=== PATIENT | female | born 1930 | race Caucasian/White ===

== ENCOUNTER 2017-10-21 11:59 | Inpatient (IN) | payer MEDICARE, OTHER ==
[~2017-10-21] VITALS: Ht 162.6 cm; Wt 68.9 kg
[~2017-10-21 11:59] MED LIST: CARDIZEM CD240 MG PO; DETROL LA4 MG PO; KEFLEX500 MG PO; MEDROL DOSE PACK4 MG PO; VIBRAMYCIN 100100 MG PO; VOLTAREN75 MG PO
[2017-10-21] MEDS ORDERED: CARDIZEM120 MG PO (12:14)
[2017-10-21] MEDS ORDERED: COLACE100 MG PO (12:14)
[2017-10-21] MEDS ORDERED: MEGACE40 MG PO (12:17)
[2017-10-21] MEDS ORDERED: FERROUS SULFAT325 MG PO (12:17)
[2017-10-21] MEDS ORDERED: MOBIC7.5 MG PO (12:18)
[2017-10-21] MEDS ORDERED: MIRALAX527 GM PO (12:18)
[2017-10-21 12:48] VITALS: BP 112/48
[2017-10-21 13:12] LABS: APPEARANCE CLEAR (CLEAR); COLOR YELLOW (YELLOW)
[2017-10-21 13:13] LABS: BILIRUBIN NEGATIVE (NEGATIVE); GLUCOSE NEGATIVE (NEGATIVE); KETONE SMALL mg/dL (NEGATIVE); NITRITE NEGATIVE (NEGATIVE); PROTEIN NEGATIVE (NEGATIVE); SPECIFIC GRAVITY 1.015 (1.005-1.020); UROBILINOGEN NORMAL (NORMAL)
[2017-10-21 13:17] LABS: BASOPHILS 0.2 % (0-2); IMMATURE GRANULOCYTES 0.5 % (0-5); LYMPHOCYTES 11.2 % (15-50); MCH 31.7 pg (26.0-34.0); MCHC 34.5 g/dL (31.0-37.0); MCV 91.7 fL (80.0-100.0); MEAN PLATELET VOLUME 9.5 fL (7.4-10.4); MONOCYTES 8.5 % (2-11); NEUTROPHILS 78.6 % (40-80); PLATELET COUNT 209 10x3/uL (130-400); RBC 2.18 10x6/uL (4.00-5.40); RDW 13.6 % (11.5-14.5); WBC 4.1 10x3/uL (4.8-10.8)
[2017-10-21 13:38] LABS: ALBUMIN 2.5 g/dL (3.4-5.0); ALKALINE PHOSPHATASE 86 U/L (46-116); ALT (SGPT) 28 U/L (10-68); BILIRUBIN - TOTAL 0.33 mg/dL (0.2-1.3); CALC OSMOLALITY 268 mosm/kg (275-300); CALCIUM 8.3 mg/dL (8.5-10.1); CARBON DIOXIDE 26.2 mmol/L (21.0-32.0); CHLORIDE - SERUM 98 mmol/L (98-107); CREATININE - SERUM 0.7 mg/dL (0.6-1.3); GLUCOSE 99 mg/dL (74-106); POTASSIUM - SERUM 4.6 mmol/L (3.5-5.1); PROTEIN - SERUM 5.2 g/dL (6.4-8.2); SODIUM 131 mmol/L (136-145); UREA NITROGEN 30 mg/dL (7-18); eGFR NON AFRICAN AMERICAN 83 mL/min (90-120)
[2017-10-21 13:44] LABS: HEMOGLOBIN 6.9 g/dL (12-16)
[2017-10-21 13:51] LABS: CKMB 0.3 U/L (0.0-3.6); CREATINE KINASE 62 UL (21-215)
[2017-10-21 14:01] LABS: TROPONIN-I < 0.017 ng/mL (0.000-0.060)
[2017-10-21 15:21] VITALS: BP 112/53
[2017-10-21 17:14] VITALS: BP 116/59
[2017-10-21 19:28] LABS: HEMATOCRIT 18.4 % (36.0-48.0); HEMOGLOBIN 6.1 g/dL (12-16)
[2017-10-21 20:10] VITALS: BP 129/62
[2017-10-22] VITALS (7 sets, daily range): BP systolic 109–152; BP diastolic 44–71; Ht 162.6 cm; Wt 68.9 kg
[2017-10-22 06:36] LABS: BASOPHILS 0.4 % (0-2); EOSINOPHILS 2.9 % (0-7); IMMATURE GRANULOCYTES 0.2 % (0-5); LYMPHOCYTES 14.4 % (15-50); MCH 31.4 pg (26.0-34.0); MCHC 34.2 g/dL (31.0-37.0); MCV 91.8 fL (80.0-100.0); MEAN PLATELET VOLUME 9.6 fL (7.4-10.4); NEUTROPHILS 72.1 % (40-80); PLATELET COUNT 173 10x3/uL (130-400); RDW 13.5 % (11.5-14.5); WBC 4.5 10x3/uL (4.8-10.8)
[2017-10-22 06:56] LABS: HEMATOCRIT 25.7 % (36.0-48.0); HEMOGLOBIN 8.8 g/dL (12-16)
[2017-10-22 07:16] LABS: INR 1.21 (0.85-1.17); PROTIME 14.9 SECONDS (11.6-15.0)
[2017-10-22 07:28] LABS: ALBUMIN 2.3 g/dL (3.4-5.0); ALKALINE PHOSPHATASE 69 U/L (46-116); ALT (SGPT) 23 U/L (10-68); BILIRUBIN - TOTAL 0.64 mg/dL (0.2-1.3); CALC OSMOLALITY 267 mosm/kg (275-300); CARBON DIOXIDE 25.4 mmol/L (21.0-32.0); CHLORIDE - SERUM 102 mmol/L (98-107); CREATININE - SERUM 0.6 mg/dL (0.6-1.3); GLUCOSE 83 mg/dL (74-106); POTASSIUM - SERUM 4.2 mmol/L (3.5-5.1); PRE-ALBUMIN 12.1 mg/dL (18.0-35.7); PROTEIN - SERUM 4.7 g/dL (6.4-8.2); SODIUM 132 mmol/L (136-145); UREA NITROGEN 25 mg/dL (7-18); eGFR NON AFRICAN AMERICAN > 90 mL/min (90-120)
[2017-10-22] MEDS ORDERED: DETROL LA4 MG PO (12:36)
[2017-10-22] MEDS ORDERED: VIBRAMYCIN 100100 MG PO (12:37)
[2017-10-22] MEDS ORDERED: NYSTATIN1 PWD TOPICAL (12:39)
[2017-10-22 18:36] LABS: HEMOGLOBIN 10.5 g/dL (12-16)
[2017-10-23 01:17] VITALS: BP 130/69
[2017-10-23 04:00] VITALS: BP 118/62
[2017-10-23 04:51] LABS: BASOPHILS 0.4 % (0-2); EOSINOPHILS 4.1 % (0-7); HEMATOCRIT 29.8 % (36.0-48.0); HEMOGLOBIN 10.1 g/dL (12-16); IMMATURE GRANULOCYTES 0.2 % (0-5); LYMPHOCYTES 14.9 % (15-50); MCH 30.6 pg (26.0-34.0); MCHC 33.9 g/dL (31.0-37.0); MCV 90.3 fL (80.0-100.0); MEAN PLATELET VOLUME 9.8 fL (7.4-10.4); MONOCYTES 8.8 % (2-11); NEUTROPHILS 71.6 % (40-80); PLATELET COUNT 153 10x3/uL (130-400); RDW 14.7 % (11.5-14.5); WBC 4.9 10x3/uL (4.8-10.8)
[2017-10-23 05:12] LABS: ALBUMIN 2.4 g/dL (3.4-5.0); ALKALINE PHOSPHATASE 66 U/L (46-116); ALT (SGPT) 20 U/L (10-68); BILIRUBIN - TOTAL 0.75 mg/dL (0.2-1.3); CALC OSMOLALITY 264 mosm/kg (275-300); CARBON DIOXIDE 24.5 mmol/L (21.0-32.0); CHLORIDE - SERUM 100 mmol/L (98-107); GLUCOSE 77 mg/dL (74-106); POTASSIUM - SERUM 3.9 mmol/L (3.5-5.1); PROTEIN - SERUM 4.7 g/dL (6.4-8.2); SODIUM 131 mmol/L (136-145); UREA NITROGEN 22 mg/dL (7-18)
[2017-10-23 05:13] LABS: CREATININE - SERUM 0.4 mg/dL (0.6-1.3); eGFR NON AFRICAN AMERICAN > 90 mL/min (90-120)
[2017-10-23 08:22] VITALS: BP 118/59
[2017-10-23 11:34] VITALS: BP 90/42
[2017-10-23 15:57] VITALS: BP 108/60
[2017-10-23 21:32] VITALS: BP 103/61
[2017-10-24] VITALS (10 sets, daily range): BP systolic 89–101; BP diastolic 41–53
[2017-10-24 06:20] LABS: BASOPHILS 0.6 % (0-2); EOSINOPHILS 4.6 % (0-7); HEMOGLOBIN 8.2 g/dL (12-16); IMMATURE GRANULOCYTES 0.4 % (0-5); LYMPHOCYTES 14.8 % (15-50); MCH 31.7 pg (26.0-34.0); MCHC 34.7 g/dL (31.0-37.0); MCV 91.1 fL (80.0-100.0); MONOCYTES 9.8 % (2-11); NEUTROPHILS 69.8 % (40-80); PLATELET COUNT 166 10x3/uL (130-400); RDW 14.8 % (11.5-14.5); WBC 5.2 10x3/uL (4.8-10.8)
[2017-10-24 06:22] LABS: HEMATOCRIT 23.6 % (36.0-48.0); RBC 2.59 10x6/uL (4.00-5.40)
[2017-10-24 06:40] LABS: ALBUMIN 2.4 g/dL (3.4-5.0); ALKALINE PHOSPHATASE 53 U/L (46-116); ALT (SGPT) 18 U/L (10-68); BILIRUBIN - TOTAL 0.46 mg/dL (0.2-1.3); CALC OSMOLALITY 265 mosm/kg (275-300); CARBON DIOXIDE 25.5 mmol/L (21.0-32.0); CHLORIDE - SERUM 100 mmol/L (98-107); GLUCOSE 79 mg/dL (74-106); PROTEIN - SERUM 4.5 g/dL (6.4-8.2); SODIUM 131 mmol/L (136-145); UREA NITROGEN 24 mg/dL (7-18)
[2017-10-24 06:44] LABS: CREATININE - SERUM 0.6 mg/dL (0.6-1.3); eGFR NON AFRICAN AMERICAN > 90 mL/min (90-120)
[2017-10-25 01:26] VITALS: BP 89/39
[2017-10-25 05:39] VITALS: BP 88/39
[2017-10-25 05:46] LABS: BASOPHILS 0.6 % (0-2); EOSINOPHILS 5.8 % (0-7); HEMATOCRIT 26.3 % (36.0-48.0); HEMOGLOBIN 8.9 g/dL (12-16); IMMATURE GRANULOCYTES 0.2 % (0-5); LYMPHOCYTES 16.3 % (15-50); MCH 30.3 pg (26.0-34.0); MCHC 33.8 g/dL (31.0-37.0); MCV 89.5 fL (80.0-100.0); MEAN PLATELET VOLUME 9.8 fL (7.4-10.4); MONOCYTES 6.9 % (2-11); NEUTROPHILS 70.2 % (40-80); PLATELET COUNT 167 10x3/uL (130-400); RBC 2.94 10x6/uL (4.00-5.40); WBC 5.3 10x3/uL (4.8-10.8)
[2017-10-25 06:15] LABS: ALBUMIN 2.3 g/dL (3.4-5.0); ALKALINE PHOSPHATASE 61 U/L (46-116); ALT (SGPT) 16 U/L (10-68); BILIRUBIN - TOTAL 0.45 mg/dL (0.2-1.3); CALC OSMOLALITY 259 mosm/kg (275-300); CALCIUM 7.8 mg/dL (8.5-10.1); CARBON DIOXIDE 24.4 mmol/L (21.0-32.0); CHLORIDE - SERUM 99 mmol/L (98-107); CREATININE - SERUM 0.6 mg/dL (0.6-1.3); GLUCOSE 79 mg/dL (74-106); POTASSIUM - SERUM 4.3 mmol/L (3.5-5.1); PROTEIN - SERUM 4.5 g/dL (6.4-8.2); SODIUM 128 mmol/L (136-145); UREA NITROGEN 25 mg/dL (7-18); eGFR NON AFRICAN AMERICAN > 90 mL/min (90-120)
[2017-10-25 08:57] VITALS: BP 128/64
[2017-10-25 11:51] VITALS: BP 132/66
[2017-10-25 15:51] VITALS: BP 120/69
[2017-10-26 04:00] VITALS: BP 104/52
[2017-10-26 04:58] LABS: BASOPHILS 0.6 % (0-2); EOSINOPHILS 4.9 % (0-7); HEMOGLOBIN 8.1 g/dL (12-16); IMMATURE GRANULOCYTES 0.4 % (0-5); LYMPHOCYTES 14.2 % (15-50); MCH 30.6 pg (26.0-34.0); MCHC 33.8 g/dL (31.0-37.0); MCV 90.6 fL (80.0-100.0); MEAN PLATELET VOLUME 10.1 fL (7.4-10.4); MONOCYTES 7.5 % (2-11); NEUTROPHILS 72.4 % (40-80); PLATELET COUNT 170 10x3/uL (130-400); RBC 2.65 10x6/uL (4.00-5.40); RDW 15.5 % (11.5-14.5); WBC 5.1 10x3/uL (4.8-10.8)
[2017-10-26 05:13] LABS: ALBUMIN 2.3 g/dL (3.4-5.0); ALKALINE PHOSPHATASE 60 U/L (46-116); ALT (SGPT) 15 U/L (10-68); BILIRUBIN - TOTAL 0.57 mg/dL (0.2-1.3); CALC OSMOLALITY 256 mosm/kg (275-300); CALCIUM 7.7 mg/dL (8.5-10.1); CARBON DIOXIDE 27.4 mmol/L (21.0-32.0); CHLORIDE - SERUM 97 mmol/L (98-107); CREATININE - SERUM 0.6 mg/dL (0.6-1.3); GLUCOSE 80 mg/dL (74-106); PROTEIN - SERUM 4.5 g/dL (6.4-8.2); SODIUM 128 mmol/L (136-145); eGFR NON AFRICAN AMERICAN > 90 mL/min (90-120)
[2017-10-26 05:14] LABS: UREA NITROGEN 15 mg/dL (7-18)
[2017-10-26 08:05] VITALS: BP 136/72
[2017-10-26 11:18] VITALS: BP 132/78
[2017-10-26 15:14] VITALS: BP 130/64
[2017-10-26 20:30] VITALS: BP 100/62
[2017-10-27 00:30] VITALS: BP 115/77
[2017-10-27 04:30] VITALS: BP 110/59
[2017-10-27 08:46] VITALS: BP 113/49
[2017-10-27 11:45] VITALS: BP 118/64
[2017-10-27 12:33] LABS: BASOPHILS 0.3 % (0-2); EOSINOPHILS 2.9 % (0-7); IMMATURE GRANULOCYTES 0.3 % (0-5); LYMPHOCYTES 8.5 % (15-50); MCH 30.4 pg (26.0-34.0); MCHC 34.6 g/dL (31.0-37.0); MEAN PLATELET VOLUME 9.8 fL (7.4-10.4); MONOCYTES 7.8 % (2-11); NEUTROPHILS 80.2 % (40-80); PLATELET COUNT 180 10x3/uL (130-400); RDW 15.7 % (11.5-14.5); WBC 5.9 10x3/uL (4.8-10.8)
[2017-10-27 12:36] LABS: HEMATOCRIT 31.2 % (36.0-48.0); HEMOGLOBIN 10.8 g/dL (12-16); MCV 87.9 fL (80.0-100.0); RBC 3.55 10x6/uL (4.00-5.40)
[2017-10-27 13:02] LABS: CALC OSMOLALITY 251 mosm/kg (275-300); CARBON DIOXIDE 28.2 mmol/L (21.0-32.0); CHLORIDE - SERUM 97 mmol/L (98-107); CREATININE - SERUM 0.6 mg/dL (0.6-1.3); GLUCOSE 85 mg/dL (74-106); POTASSIUM - SERUM 3.8 mmol/L (3.5-5.1); SODIUM 127 mmol/L (136-145); eGFR NON AFRICAN AMERICAN > 90 mL/min (90-120)
[2017-10-27 13:04] LABS: UREA NITROGEN 8 mg/dL (7-18)
[2017-10-27 15:59] VITALS: BP 116/50
[2017-10-27 20:00] VITALS: BP 99/52
[2017-10-28] VITALS: BP 111/63
[2017-10-28 05:54] LABS: BASOPHILS 0.4 % (0-2); EOSINOPHILS 4.3 % (0-7); HEMATOCRIT 30.9 % (36.0-48.0); HEMOGLOBIN 10.5 g/dL (12-16); IMMATURE GRANULOCYTES 0.2 % (0-5); LYMPHOCYTES 11.2 % (15-50); MCH 30.1 pg (26.0-34.0); MCV 88.5 fL (80.0-100.0); MEAN PLATELET VOLUME 10.3 fL (7.4-10.4); MONOCYTES 9.9 % (2-11); PLATELET COUNT 182 10x3/uL (130-400); RBC 3.49 10x6/uL (4.00-5.40); RDW 16.4 % (11.5-14.5); WBC 4.5 10x3/uL (4.8-10.8)
[2017-10-28 06:19] LABS: CALC OSMOLALITY 256 mosm/kg (275-300); CARBON DIOXIDE 27.6 mmol/L (21.0-32.0); CHLORIDE - SERUM 99 mmol/L (98-107); CREATININE - SERUM 0.5 mg/dL (0.6-1.3); GLUCOSE 84 mg/dL (74-106); POTASSIUM - SERUM 3.3 mmol/L (3.5-5.1); SODIUM 129 mmol/L (136-145); UREA NITROGEN 10 mg/dL (7-18); eGFR NON AFRICAN AMERICAN > 90 mL/min (90-120)
[2017-10-28 06:37] VITALS: BP 100/47
== END 2017-10-28 13:34 | DRG 378 ==
LOC: D.ER 11:59 → D.M2 16:55 → D.SDCHOLD 10-28 11:27 → D.M2 10-28 13:34
PROVIDERS: Family Medicine; Internal Medicine Nephrology
DX: K92.2 Gastrointestinal hemorrhage, unspecified (principal); D62 Acute posthemorrhagic anemia; E87.1 Hypo-osmolality and hyponatremia; T39.395A Adverse effect of other nonsteroidal anti-inflammatory drugs [NSAID], initial encounter; I35.0 Nonrheumatic aortic (valve) stenosis; M19.90 Unspecified osteoarthritis, unspecified site; I10 Essential (primary) hypertension; K59.00 Constipation, unspecified

== ENCOUNTER 2017-11-11 07:00 | Inpatient (IN) | payer MEDICARE, OTHER ==
[~2017-11-11] VITALS: Ht 162.6 cm; Wt 79.4 kg
--- NOTE | ~2017-11-11 | PN ---
PATIENT:NICOLE CORONA MEDICAL RECORD: [id number] LOCATION:D. D.213 ADMISSION DATE: 11/11/17 PROGRESS NOTE DATE OF SERVICE: 11/17/2017 SUBJECTIVE: This is an 87-year-old old female who was admitted for multifocal pneumonia with hypoxemia. The patient has been on antibiotics. She has nonproductive cough. She has a small right and left pleural effusion. She has had a history of hypertension, osteoarthritis, gastroesophageal reflux disease. Denies any fever or chills. PHYSICAL EXAMINATION: GENERAL: Reveals a female who is in no acute distress. VITAL SIGNS: Temperature 98.2, heart rate of 83, respiratory rate of 18, blood pressure 138/88, saturations 100. SHEENT: Unremarkable. NECK: Supple. There is no adenopathy. Trachea is midline. CHEST: Showed mild crackles on coughing. There is no accessory muscle use. HEART: Shows no jugular venous distention. No murmur or gallops. ABDOMEN: Benign, without any tenderness. EXTREMITIES: No clubbing, cyanosis or edema. LABORATORY DATA: Showed white count is 4.5, hemoglobin 9.8 and platelet count 219. Chemistry is remarkable for potassium 4.5, sodium 132, creatinine is 0.6. INR is 1.07. Chest x-ray from yesterday showed multifocal alveolar and interstitial densities bilaterally with small effusions. ASSESSMENT: Pneumonia, multifocal, this is healthcare-associated pneumonia, but could be treated as community-acquired pneumonia. She is on appropriate antibiotics. There is further suggestion of chronic obstructive pulmonary disease and is on bronchodilators. PLAN: 1. Continue antibiotics. 2. Bronchodilators. 3. Mucolytics. 4. Saline nasal spray. 5. DVT prophylaxis. TRANSINT:[id number] Voice Confirmation ID: [id number] DOCUMENT ID: [id number] HAYDE LINDA at 1248 CC: [id number] DICTATION DATE: 11/17/171903 ROTOR CASTING MACHINE OPERATOR: 11/18/17 0031 DIS IN 11/18/17 [facility] [address] [place] [address]
--- NOTE | ~2017-11-11 | EC ---
PATIENT:NICOLE CORONA DATE OF SERVICE: 11/11/17 SEX: F MEDICAL RECORD: [id number] DATE OF : [birth year] LOCATION:D.M2 D.213 AGE OF PATIENT: 87 ADMISSION DATE: 11/11/17 REFERRING PHYSICIAN: INTERPRETING PHYSICIAN: MAURI HERNANDEZ MD ECHOCARDIOGRAM REPORT ECHO CHARGES 4 ECHO COMPLETE Date: 11/12 CLINICAL DIAGNOSIS: CHF ECHOCARDIOGRAPHIC MEASUREMENTS (adult normal given) AC root (d.<3.7cm) 3.1 cm LV Septum d (<1.2 cm> 1.1 cm Valve Excursion 0.6 cm LV Septum (systole) 1.8 cm Left Atria (s.<4.0cm> 5.6 cm LVPW d(<1.2cm) 1.3 cm RV (d.<2.3cm) 2.5 cm LVPW (sytole) 2.1 cm LV diastole(<5.6CM) 5.3 cm MV E-F(>70mm/sec) cm LV systole 3.1 cm LVOT Diameter 1.7 cm MV exc.(>10mm) cm Est.ejection fraction (50-75%) % DOPPLER: LVIT cm/sec A 173 cm/sec E 118 cm/sec LA cm/sec RVSP 54.0 mmHg LVOT 129 cm/sec AOP1/2T m/s Asc. Ao 484 cm/sec RVOT 95.0 cm/sec RA cm/sec PA 296 cm/sec AV Gradient Peak 94.0 mmHg AV Mean 55.0 mmHg AV Area 0.7 cm MV Gradient Peak 8.6 mmHg MV Mean 2.6 mmHg MV Area cm COMMENTS: Coding Advisor: 1 PEDRO LONEPINE Electrical Lineworker: 1 Dr. Hernandez TAPE# PACS Pericardial Effusion N DATE OF SERVICE: FINDINGS: 1. Left ventricular chamber size is within normal limits. Left ventricular systolic function is normal. Overall ejection fraction estimated at 60%. 2. Left atrium is enlarged at 5.6 cm. Right atrium and right ventricle chamber sizes are within normal limits. 3. Valvular structures: Aortic valve demonstrates severe calcific aortic stenosis, valve area calculates to 0.7 cm-squared and has a gradient of 94 mm across the valve. The remaining valvular structures have normal structure and ECHOCARDIOGRAM REPORT [id number] NICOLE CORONA motion. 4. Doppler interrogation elsewise reveals mild mitral regurgitation, moderate tricuspid regurgitation, no other valvular insufficiency or stenosis. Pulmonary systolic pressure is elevated estimated 54 mmHg. 5. No evidence of pericardial effusion or left ventricular thrombus. TRANSINT:[id number] Voice Confirmation ID: [id number] DOCUMENT ID: [id number] MAURI HERNANDEZ MD at 1752 CC: [id number] DICTATION DATE: 11/12/17 162 MANAGER HEAVY EQUIPMENT: 11/12/17 1637 ADM IN [place] [id number] [place] [address]
[~2017-11-11 07:00] MED LIST changes: +CARDIZEM120 MG PO; +COLACE100 MG PO; +FERROUS SULFAT325 MG PO; +MEGACE40 MG PO; +MIRALAX527 GM PO; +MOBIC7.5 MG PO; +NYSTATIN1 PWD TOPICAL
[2017-11-11] MEDS ORDERED: LEXAPRO5 MG PO (07:09)
[2017-11-11] MEDS ORDERED: MELATONIN 3 MG1 TAB PO (07:10)
[2017-11-11] MEDS ORDERED: FEXOFENADINE H180 MG PO (07:11)
[2017-11-11] MEDS ORDERED: PROVENTIL/2.5 MG/3 M INH (07:12)
[2017-11-11] MEDS ORDERED: SCOT-TUSSI10 MG/5 ML PO (07:12)
[2017-11-11] MEDS ORDERED: LEVAQUIN500 MG PO (07:13)
[2017-11-11 07:38] LABS: BASOPHILS 0.2 % (0-2); EOSINOPHILS 1.4 % (0-7); HEMATOCRIT 28.6 % (36.0-48.0); HEMOGLOBIN 9.7 g/dL (12-16); IMMATURE GRANULOCYTES 0.2 % (0-5); LYMPHOCYTES 3.4 % (15-50); MCH 30.2 pg (26.0-34.0); MCHC 33.9 g/dL (31.0-37.0); MCV 89.1 fL (80.0-100.0); MEAN PLATELET VOLUME 8.8 fL (7.4-10.4); MONOCYTES 9.5 % (2-11); NEUTROPHILS 85.3 % (40-80); PLATELET COUNT 208 10x3/uL (130-400); RBC 3.21 10x6/uL (4.00-5.40); RDW 14.9 % (11.5-14.5); WBC 5.9 10x3/uL (4.8-10.8)
[2017-11-11 07:45] LABS: INR 1.07 (0.85-1.17); PROTIME 13.5 SECONDS (11.6-15.0)
[2017-11-11 07:46] LABS: D-DIMER-QUANTITATIVE 2.16 ug/mLFEU (0.20-0.54)
[2017-11-11 07:48] LABS: ALBUMIN 2.4 g/dL (3.4-5.0); ALKALINE PHOSPHATASE 82 U/L (46-116); ALT (SGPT) 16 U/L (10-68); BILIRUBIN - TOTAL 0.45 mg/dL (0.2-1.3); CALC OSMOLALITY 251 mosm/kg (275-300); CALCIUM 8.3 mg/dL (8.5-10.1); CARBON DIOXIDE 27.9 mmol/L (21.0-32.0); CHLORIDE - SERUM 91 mmol/L (98-107); CREATININE - SERUM 0.7 mg/dL (0.6-1.3); GLUCOSE 95 mg/dL (74-106); PROTEIN - SERUM 5.6 g/dL (6.4-8.2); SODIUM 125 mmol/L (136-145); UREA NITROGEN 13 mg/dL (7-18); eGFR NON AFRICAN AMERICAN 83 mL/min (90-120)
[2017-11-11 08:00] LABS: CREATINE KINASE 22 UL (21-215); PRO BNP 2036 pg/mL (0-450); TROPONIN-I 0.045 ng/mL (0.000-0.060)
[2017-11-11 08:10] VITALS: BP 110/60
[2017-11-11 09:10] VITALS: BP 116/61
[2017-11-11 11:41] VITALS: BP 113/65
[2017-11-11 13:24] VITALS: BP 121/72; BMI 30.1
[2017-11-11 15:40] VITALS: BP 134/59
[2017-11-11 17:33] LABS: % SATURATION 14 % (15-55); IRON 21 ug/dl (35-150); TOTAL IRON BIND CAPACITY 150 ug/dl (260-445); UNSAT IRON BIND CAPACITY 129 ug/dl (150-375)
[2017-11-11 22:16] VITALS: BP 124/70
[2017-11-12 03:59] LABS: APPEARANCE CLEAR (CLEAR); BILIRUBIN NEGATIVE (NEGATIVE); COLOR YELLOW (YELLOW); GLUCOSE NEGATIVE (NEGATIVE); KETONE SMALL mg/dL (NEGATIVE); NITRITE NEGATIVE (NEGATIVE); PROTEIN NEGATIVE (NEGATIVE); UROBILINOGEN NORMAL (NORMAL)
[2017-11-12 04:01] LABS: BACTERIA FEW /hpf (NONE SEEN); EPITHELIAL CELLS 0-5 /hpf (0-5); RED CELLS - URINE 0-5 /hpf (0-5); WHITE CELLS - URINE 0-5 /hpf (0-5)
[2017-11-12 05:19] LABS: BASOPHILS 0.6 % (0-2); EOSINOPHILS 1.9 % (0-7); HEMATOCRIT 26.6 % (36.0-48.0); HEMOGLOBIN 8.8 g/dL (12-16); IMMATURE GRANULOCYTES 0.2 % (0-5); LYMPHOCYTES 8.6 % (15-50); MCH 29.8 pg (26.0-34.0); MCHC 33.1 g/dL (31.0-37.0); MCV 90.2 fL (80.0-100.0); MEAN PLATELET VOLUME 9.1 fL (7.4-10.4); NEUTROPHILS 80.7 % (40-80); PLATELET COUNT 218 10x3/uL (130-400); RBC 2.95 10x6/uL (4.00-5.40); WBC 5.4 10x3/uL (4.8-10.8)
[2017-11-12 05:43] LABS: ALBUMIN 2.1 g/dL (3.4-5.0); ALKALINE PHOSPHATASE 67 U/L (46-116); ALT (SGPT) 18 U/L (10-68); BILIRUBIN - TOTAL 0.43 mg/dL (0.2-1.3); CALCIUM 7.9 mg/dL (8.5-10.1); CARBON DIOXIDE 25.2 mmol/L (21.0-32.0); CHLORIDE - SERUM 96 mmol/L (98-107); CREATININE - SERUM 0.7 mg/dL (0.6-1.3); PHOSPHOROUS 3.3 mg/dL (2.5-4.9); POTASSIUM - SERUM 3.7 mmol/L (3.5-5.1); PROTEIN - SERUM 5.1 g/dL (6.4-8.2); SODIUM 129 mmol/L (136-145); eGFR NON AFRICAN AMERICAN 83 mL/min (90-120)
[2017-11-12 05:45] LABS: CALC OSMOLALITY 254 mosm/kg (275-300); GLUCOSE 65 mg/dL (74-106); UREA NITROGEN 7 mg/dL (7-18)
[2017-11-12 06:50] VITALS: BP 117/65
[2017-11-12 09:22] LABS: FOLATE (FOLIC ACID) - SERUM 10.4 ng/mL (>3.0)
[2017-11-12 13:57] VITALS: BP 108/61
[2017-11-12 20:51] VITALS: BP 123/63
[2017-11-13 01:24] VITALS: BP 132/60
[2017-11-13 05:17] LABS: BASOPHILS 0.5 % (0-2); EOSINOPHILS 4.6 % (0-7); HEMATOCRIT 29.8 % (36.0-48.0); HEMOGLOBIN 9.8 g/dL (12-16); IMMATURE GRANULOCYTES 0.5 % (0-5); LYMPHOCYTES 5.8 % (15-50); MCH 29.8 pg (26.0-34.0); MCHC 32.9 g/dL (31.0-37.0); MCV 90.6 fL (80.0-100.0); MEAN PLATELET VOLUME 8.9 fL (7.4-10.4); MONOCYTES 9.8 % (2-11); NEUTROPHILS 78.8 % (40-80); PLATELET COUNT 207 10x3/uL (130-400); RBC 3.29 10x6/uL (4.00-5.40); RDW 15.1 % (11.5-14.5); WBC 5.8 10x3/uL (4.8-10.8)
[2017-11-13 05:33] LABS: CALC OSMOLALITY 255 mosm/kg (275-300); CALCIUM 7.6 mg/dL (8.5-10.1); CARBON DIOXIDE 31.4 mmol/L (21.0-32.0); CHLORIDE - SERUM 95 mmol/L (98-107); CREATININE - SERUM 0.7 mg/dL (0.6-1.3); GLUCOSE 78 mg/dL (74-106); POTASSIUM - SERUM 3.8 mmol/L (3.5-5.1); SODIUM 129 mmol/L (136-145); UREA NITROGEN 7 mg/dL (7-18); eGFR NON AFRICAN AMERICAN 83 mL/min (90-120)
[2017-11-13 05:55] VITALS: BP 146/74
[2017-11-13 12:33] VITALS: BP 125/72
[2017-11-13 16:52] VITALS: Ht 162.6 cm; Wt 79.4 kg
[2017-11-13 17:21] VITALS: BP 151/81
[2017-11-13 20:35] VITALS: BP 124/67
[2017-11-14 05:34] VITALS: BP 118/61
[2017-11-14 06:09] LABS: BASOPHILS 0.4 % (0-2); EOSINOPHILS 6.2 % (0-7); HEMATOCRIT 30.4 % (36.0-48.0); HEMOGLOBIN 9.7 g/dL (12-16); IMMATURE GRANULOCYTES 0.2 % (0-5); LYMPHOCYTES 10.1 % (15-50); MCH 29.3 pg (26.0-34.0); MCHC 31.9 g/dL (31.0-37.0); MCV 91.8 fL (80.0-100.0); MEAN PLATELET VOLUME 9.1 fL (7.4-10.4); MONOCYTES 10.3 % (2-11); NEUTROPHILS 72.8 % (40-80); PLATELET COUNT 216 10x3/uL (130-400); RBC 3.31 10x6/uL (4.00-5.40); WBC 4.9 10x3/uL (4.8-10.8)
[2017-11-14 06:37] LABS: CALC OSMOLALITY 256 mosm/kg (275-300); CALCIUM 8.1 mg/dL (8.5-10.1); CARBON DIOXIDE 31.2 mmol/L (21.0-32.0); CHLORIDE - SERUM 96 mmol/L (98-107); CREATININE - SERUM 0.6 mg/dL (0.6-1.3); GLUCOSE 72 mg/dL (74-106); PHOSPHOROUS 2.1 mg/dL (2.5-4.9); POTASSIUM - SERUM 4.1 mmol/L (3.5-5.1); SODIUM 130 mmol/L (136-145); eGFR NON AFRICAN AMERICAN > 90 mL/min (90-120)
[2017-11-14 06:39] LABS: UREA NITROGEN 5 mg/dL (7-18)
[2017-11-14 08:26] VITALS: BP 124/71
[2017-11-14 11:35] VITALS: BP 97/55
[2017-11-14 16:00] VITALS: BP 95/53
[2017-11-14 20:00] VITALS: BP 126/68
[2017-11-15] VITALS: BP 135/76
[2017-11-15 04:00] VITALS: BP 138/74
[2017-11-15 06:22] LABS: BASOPHILS 0.4 % (0-2); EOSINOPHILS 6.3 % (0-7); HEMATOCRIT 30.1 % (36.0-48.0); HEMOGLOBIN 9.7 g/dL (12-16); IMMATURE GRANULOCYTES 0.2 % (0-5); LYMPHOCYTES 9.3 % (15-50); MCH 29.8 pg (26.0-34.0); MCHC 32.2 g/dL (31.0-37.0); MCV 92.3 fL (80.0-100.0); MEAN PLATELET VOLUME 8.9 fL (7.4-10.4); MONOCYTES 7.3 % (2-11); NEUTROPHILS 76.5 % (40-80); PLATELET COUNT 214 10x3/uL (130-400); RBC 3.26 10x6/uL (4.00-5.40)
[2017-11-15 06:50] LABS: CALC OSMOLALITY 257 mosm/kg (275-300); CARBON DIOXIDE 34.8 mmol/L (21.0-32.0); CHLORIDE - SERUM 96 mmol/L (98-107); CREATININE - SERUM 0.5 mg/dL (0.6-1.3); GLUCOSE 76 mg/dL (74-106); POTASSIUM - SERUM 4.2 mmol/L (3.5-5.1); SODIUM 130 mmol/L (136-145); eGFR NON AFRICAN AMERICAN > 90 mL/min (90-120)
[2017-11-15 06:54] LABS: UREA NITROGEN 7 mg/dL (7-18)
[2017-11-15 08:40] VITALS: BP 153/97
[2017-11-15 11:52] VITALS: BP 120/65
[2017-11-15 15:23] VITALS: BP 132/57
[2017-11-15 20:00] VITALS: BP 105/56
[2017-11-16] VITALS: BP 140/84
[2017-11-16 04:00] VITALS: BP 136/70
[2017-11-16 06:25] LABS: BASOPHILS 0.5 % (0-2); HEMATOCRIT 30.9 % (36.0-48.0); HEMOGLOBIN 9.9 g/dL (12-16); IMMATURE GRANULOCYTES 0.5 % (0-5); LYMPHOCYTES 10.8 % (15-50); MCH 29.6 pg (26.0-34.0); MCV 92.5 fL (80.0-100.0); MEAN PLATELET VOLUME 9.2 fL (7.4-10.4); MONOCYTES 9.2 % (2-11); PLATELET COUNT 224 10x3/uL (130-400); RBC 3.34 10x6/uL (4.00-5.40); RDW 15.1 % (11.5-14.5); WBC 5.7 10x3/uL (4.8-10.8)
[2017-11-16 06:31] LABS: CALC OSMOLALITY 258 mosm/kg (275-300); CARBON DIOXIDE 36.5 mmol/L (21.0-32.0); CHLORIDE - SERUM 94 mmol/L (98-107); CREATININE - SERUM 0.4 mg/dL (0.6-1.3); GLUCOSE 77 mg/dL (74-106); POTASSIUM - SERUM 4.4 mmol/L (3.5-5.1); SODIUM 130 mmol/L (136-145); eGFR NON AFRICAN AMERICAN > 90 mL/min (90-120)
[2017-11-16 06:32] LABS: UREA NITROGEN 9 mg/dL (7-18)
[2017-11-16 08:55] VITALS: BP 138/64
[2017-11-16 13:20] VITALS: BP 104/58
[2017-11-16 16:50] VITALS: BP 104/56
[2017-11-16 21:17] VITALS: BP 106/58
[2017-11-17 00:28] VITALS: BP 143/78
[2017-11-17 04:07] VITALS: BP 135/71
[2017-11-17 05:13] LABS: BASOPHILS 0.4 % (0-2); EOSINOPHILS 7.6 % (0-7); HEMATOCRIT 30.2 % (36.0-48.0); HEMOGLOBIN 9.8 g/dL (12-16); IMMATURE GRANULOCYTES 0.2 % (0-5); LYMPHOCYTES 14.7 % (15-50); MCHC 32.5 g/dL (31.0-37.0); MCV 92.4 fL (80.0-100.0); MEAN PLATELET VOLUME 9.1 fL (7.4-10.4); MONOCYTES 9.2 % (2-11); NEUTROPHILS 67.9 % (40-80); PLATELET COUNT 219 10x3/uL (130-400); RBC 3.27 10x6/uL (4.00-5.40); WBC 4.5 10x3/uL (4.8-10.8)
[2017-11-17 05:36] LABS: CALC OSMOLALITY 262 mosm/kg (275-300); CALCIUM 8.2 mg/dL (8.5-10.1); CARBON DIOXIDE 35.2 mmol/L (21.0-32.0); CHLORIDE - SERUM 96 mmol/L (98-107); CREATININE - SERUM 0.6 mg/dL (0.6-1.3); GLUCOSE 77 mg/dL (74-106); POTASSIUM - SERUM 4.5 mmol/L (3.5-5.1); SODIUM 132 mmol/L (136-145); UREA NITROGEN 10 mg/dL (7-18); eGFR NON AFRICAN AMERICAN > 90 mL/min (90-120)
[2017-11-17 07:00] VITALS: BP 138/88
[2017-11-17 21:56] VITALS: BP 112/53
[2017-11-18 05:42] VITALS: BP 114/63
[2017-11-18 05:50] LABS: BASOPHILS 0.7 % (0-2); EOSINOPHILS 10.5 % (0-7); HEMATOCRIT 31.4 % (36.0-48.0); HEMOGLOBIN 10.1 g/dL (12-16); IMMATURE GRANULOCYTES 0.2 % (0-5); LYMPHOCYTES 16.4 % (15-50); MCH 29.9 pg (26.0-34.0); MCHC 32.2 g/dL (31.0-37.0); MCV 92.9 fL (80.0-100.0); MEAN PLATELET VOLUME 9.4 fL (7.4-10.4); NEUTROPHILS 64.2 % (40-80); PLATELET COUNT 235 10x3/uL (130-400); RBC 3.38 10x6/uL (4.00-5.40); RDW 15.3 % (11.5-14.5); WBC 4.4 10x3/uL (4.8-10.8)
[2017-11-18 05:55] LABS: ALBUMIN 2.2 g/dL (3.4-5.0); ALKALINE PHOSPHATASE 69 U/L (46-116); ALT (SGPT) 15 U/L (10-68); BILIRUBIN - TOTAL 0.39 mg/dL (0.2-1.3); CALC OSMOLALITY 259 mosm/kg (275-300); CALCIUM 8.1 mg/dL (8.5-10.1); CARBON DIOXIDE 34.9 mmol/L (21.0-32.0); CHLORIDE - SERUM 96 mmol/L (98-107); CREATININE - SERUM 0.6 mg/dL (0.6-1.3); GLUCOSE 72 mg/dL (74-106); MAGNESIUM - SERUM 2.1 mg/dL (1.8-2.4); POTASSIUM - SERUM 4.3 mmol/L (3.5-5.1); PROTEIN - SERUM 5.4 g/dL (6.4-8.2); SODIUM 130 mmol/L (136-145); eGFR NON AFRICAN AMERICAN > 90 mL/min (90-120)
[2017-11-18 06:11] LABS: UREA NITROGEN 13 mg/dL (7-18)
[2017-11-18 08:47] VITALS: BP 143/76
[2017-11-18 11:26] VITALS: BP 97/48
== END 2017-11-18 14:21 | DRG 177 ==
LOC: D.ER 07:00 → D.EDHOLD 11:01 → D.M2 11:01
PROVIDERS: Family Medicine; Internal Medicine Nephrology
DX: J15.6 Pneumonia due to other Gram-negative bacteria (principal); I50.31 Acute diastolic (congestive) heart failure; J96.01 Acute respiratory failure with hypoxia; E44.0 Moderate protein-calorie malnutrition; E87.1 Hypo-osmolality and hyponatremia; J15.29 Pneumonia due to other staphylococcus; I11.0 Hypertensive heart disease with heart failure